=== PATIENT | female | born 1985 | race American Indian/Alaskan Native ===

== ENCOUNTER 2020-08-15 15:48 | Emergency (ER) | payer OTHER ==
[2020-08-15 16:14] VITALS: BP 120/78
[2020-08-15] MEDS ORDERED: LIDOCAINE MPF 1%-EPI 1:200000 10 ML VIAL SUBQ STA (16:41)
[2020-08-15] MEDS ORDERED: BUFFERED LIDOCAINE 10 ML SYRINGE SUBQ STA (16:44)
--- NOTE | 2020-08-15 17:29 | ED Physician Documentation ---
History of Present Illness - Stated complaint Stated Complaint: FEMALE - Chief complaint Chief Complaint: General - History obtained from History obtained from: Patient - Additonal information Additional information: 34-year-old woman presents with perianal pain progressive over the past 8 days with episodic fever over the past 3 days with T-max 102 at home taken by ear thermometer. 2 days ago she saw her doctor and was prescribed rectal suppositories for hemorrhoids as well as sitz bath's. The suppository is not helping but the sitz bath's are. She called her doctor saying that she is not feeling better and he advised her to come to the emergency department Review of Systems Constitutional: reports: Fever, Chills GI: reports: Other (perianal pain) PD PAST MEDICAL HISTORY - Present Medications Home Medications: Ambulatory Orders Medication Instructions Recorded Confirmed Ciprofloxacin HCl 750 mg PO QDAC #10 tablet 08/15/20 metroNIDAZOLE [Flagyl] 500 mg PO TID #30 tablet 08/15/20 - Allergies Allergies/Adverse Reactions: Allergies Allergy/AdvReac Type Severity Reaction Status Date / Time Penicillins Allergy Hives Verified 08/15/20 16:14 PD ED PE NORMAL - Vitals Vital signs reviewed: Yes - General General: Alert and oriented X 3, No acute distress, Well developed/nourished - HEENT HEENT: Atraumatic, PERRL, EOMI - Rectal Rectal: Other (no fluctuance palpable on rectal exam. R perianal fluctuance palpable extending 4cm lateral to anal verge and into the perineal region.) - Derm Derm: Other (cellulitis to R perianal region) - Neuro Neuro: Alert and oriented X 3 - Psych Psych: Normal mood, Normal affect Results - Vitals Vitals: Vital Signs - 24 hr 08/15/20 16:10 Temperature 36.2 C L Heart Rate 110 H Respiratory 15 Rate Blood Pressure 120/78 O2 Saturation 100 Oxygen O2 Source Room air Procedures - Abscess I&D (location) Buttocks right Preparation: Confirmed with ultrasound, Betadine, Lidocaine 1% Incision: Incised with scalpel, Purulent drainage, Loculations broken, Irrigat ed, Packed, Culture obtained Other: Pt tolerated well, Dressing applied, Antibiotic prescribed PD MEDICAL DECISION MAKING - ED course ED course: 34-year-old woman presented with perianal abscess which was drained and irrigated and packed. Wound culture sent. Patient will follow up For wound check in 48 hours.Return precautions given. antibiotics prescribed Departure - Departure Disposition: 01 Home, Self Care Clinical Impression: Abscess, perianal Condition: Good Instructions: Perianal Abscess Prescriptions: Ciprofloxacin HCl 750 mg PO QDAC #10 tablet metroNIDAZOLE [Flagyl] 500 mg PO TID #30 tablet Comments: You were seen in the emergency department for perianal abscess, which was drained and packed. You should take your antibiotics as prescribed, do not drink alcohol while taking them, and follow-up in 48 hours for wound check. Return to the emergency department before then if you have any other concerns.
[2020-08-15] MEDS ORDERED: ACETAMINOPHEN 325 MG TABLET PO STA (17:36)
== END 2020-08-15 17:46 | disposition home or self-care (01) ==
LOC: ED 15:48
DX: K61.0 Anal abscess (principal)
CPT/HCPCS: 46050; 87070; 87077; 87181; 87205; 99281; 99283; A9270

== ENCOUNTER 2020-08-17 13:15 | Emergency (ER) | payer OTHER ==
[2020-08-17 13:27] VITALS: BP 111/64
--- NOTE | 2020-08-17 14:02 | ED Physician Documentation ---
PD HPI SKIN - Stated complaint Stated Complaint: WOUND CHECK - Chief complaint Chief Complaint: Wound - History obtained from History obtained from: Patient - Additional information Additional information: 34-year-old woman presents for wound check after having incision and drainage of perianal abscess a couple days ago. She has had no further fevers at home although she does state that she is sweating at nighttime. She attributes this to symptom of her normal menses however. patient is changing wound dressing regularly and having normal bowel movements. Review of Systems Constitutional: reports: Sweats. denies: Fever, Chills GI: reports: Other (normal BMs) Skin: reports: Other (wound site) PD PAST MEDICAL HISTORY - Past Medical History Past Medical History: No - Past Surgical History Past Surgical History: No - Present Medications Home Medications: Ambulatory Orders Medication Instructions Recorded Confirmed Ciprofloxacin HCl 750 mg PO QDAC #10 tablet 08/15/20 metroNIDAZOLE [Flagyl] 500 mg PO TID #30 tablet 08/15/20 - Allergies Allergies/Adverse Reactions: Allergies Allergy/AdvReac Type Severity Reaction Status Date / Time Penicillins Allergy Hives Verified 08/15/20 16:14 tramadol AdvReac Emesis Verified 08/17/20 13:27 - Social History Does the pt smoke?: No Smoking Status: Never smoker Does the pt drink ETOH?: Yes Does the pt have substance abuse?: No - Immunizations Immunizations are current?: Yes - POLST Patient has POLST: No PD ED PE NORMAL - Vitals Vital signs reviewed: Yes - General General: Alert and oriented X 3, No acute distress, Well developed/nourished - HEENT HEENT: Atraumatic, PERRL, EOMI - Derm Derm: Normal color, Warm and dry, Other (wound site clean with small amount of drainage noted when packing material is removed. no additional surrounding fluctuance. ) - Neuro Neuro: Alert and oriented X 3 - Psych Psych: Normal mood, Normal affect Results - Vitals Vitals: Vital Signs - 24 hr 08/17/20 13:23 Temperature 36.1 C L Heart Rate 82 Respiratory 16 Rate Blood Pressure 111/64 O2 Saturation 100 Oxygen O2 Source Room air Procedures - General procedure General procedure: Wound irrigated with 500 cc of sterile water and packing was removed and then new packing was placed. New dressing applied. PD MEDICAL DECISION MAKING - ED course ED course: 34-year-old woman presented for wound check after an I&D. Wound looks good with small amount of drainage. Packing was replaced without incident after irrigation. Return precautions given. Patient will follow up with surgery clinic in 1 week. Departure - Departure Disposition: 01 Home, Self Care Clinical Impression: Wound check, abscess Condition: Good Instructions: ED Abscess IandD Follow-Up: Blaire Savage MD [Provider Admit Priv/Credential] - Comments: You were seen in the emergency department for a wound check after incision and drainage a couple days ago. It looks like it is healing well. I removed the strings and repacked it after irrigating with sterile water. Make sure that you continue to change your wound dressing daily and every time you have a bowel movement. Return to the emergency department if you have fever higher than 100.4 after 48 hours of antibiotics. Follow-up for a wound check in surgery clinic in [address] Savage is one of our surgeons that I recommend. You can also go to a naval surgeon.
== END 2020-08-17 14:16 | disposition home or self-care (01) ==
LOC: ED 13:15
DX: Z48.00 Encounter for change or removal of nonsurgical wound dressing (principal)
CPT/HCPCS: 99281; 99282